=== PATIENT | male | born 1995 | race Caucasian/White ===

== ENCOUNTER → 2017-05-20 | Outpatient (CLI) | payer BC ==
--- NOTE | 2017-05-20 12:51 | MR ---
EXAMINATION TYPE: MR knee LT wo con DATE OF EXAM: 05/20/2017 COMPARISON: Plain film 05/13/2017 HISTORY: Left knee pain TECHNIQUE: Multiplanar, multisequence imaging of the knee is performed without IV contrast. FINDINGS: MEDIAL MENISCUS: Anterior and posterior horns are intact without tear. LATERAL MENISCUS: Anterior and posterior horns are intact without tear. CRUCIATE LIGAMENTS: The anterior and posterior cruciate ligaments are intact and unremarkable. COLLATERAL LIGAMENTS: Popliteus tendon shows some increased signal which may represent a strain or te ndinosis. Biceps femoris tendon insertion also shows some increased signal may be due to strain or pa rtial tear, tendinosis. EXTENSOR MECHANISM: Visualized quadriceps and patellar tendons are intact. EFFUSION: Small suprapatellar joint effusion present POPLITEAL CYST: No popliteal/ayala cyst. TRICOMPARTMENT SPACES: Maintained CARTILAGE: Intact BONE MARROW SIGNAL: Abnormal increased signal present at the posterior aspect of the proximal tibia a nd to lesser extent anteriorly. OTHER: Subcutaneous edema changes are present. IMPRESSION: Findings compatible with posttraumatic bone contusion, possible microtrabecular fracture involving th e proximal tibia laterally the lateral aspect. Additional findings above.
== END | disposition home or self-care (01) ==
LOC: RADMRIMAIN 08:54
PROVIDERS: ATTEND Orthopaedic Surgery
DX: M23.304 Other meniscus derangements, unspecified medial meniscus, left knee (principal); M25.562 Pain in left knee; R60.1 Generalized edema

== ENCOUNTER → 2017-07-28 | Outpatient (CLI) | payer BC ==
--- NOTE | 2017-07-28 09:40 | US ---
EXAMINATION TYPE: US abdomen limited DATE OF EXAM: 07/28/2017 COMPARISON: None CLINICAL HISTORY: 21-year-old male R10.84, pain,R74.0 abnormal labs,R11.2 nausea/vomiting TECHNIQUE: Multiple sonographic images of the right upper quadrant are obtained. FINDINGS: FOOT CUTTER NOTES: Limited exam due to patient body habitus. Liver Length: 18.9 cm Gallbladder Wall: 0.2 cm CHD: 0.4 cm Right Kidney: 12.9 x 7.1 x 5.4 cm Pancreas: Suboptimal visualization of the pancreatic tail secondary to shadowing from bowel gas Liver: Enlarged, echogenic, and markedly attenuating. Limited visualization due to patient body habi tus. This secondarily limits assessment for focal lesion. Gallbladder: wnl Evidence for sonographic Guido's sign: neg CHD: wnl Right Kidney: No hydronephrosis IMPRESSION: Hepatomegaly and marked hepatic steatosis. Correlate with LFTs, lipid profile, and patient risk facto rs.
== END | disposition home or self-care (01) ==
LOC: RADUSWWP 07:32
PROVIDERS: ATTEND Family Medicine
DX: K76.0 Fatty (change of) liver, not elsewhere classified (principal); R16.0 Hepatomegaly, not elsewhere classified
CPT/HCPCS: 76705

== ENCOUNTER → 2018-05-11 | Outpatient (CLI) | payer BC ==
--- NOTE | 2018-05-11 15:40 | CT ---
EXAMINATION TYPE: CT abdomen w con DATE OF EXAM: 05/11/2018 COMPARISON: 04/04/2016 HISTORY: 23-year-old male with history of periumbilical hernia repair. Pain to repair region. TECHNIQUE: Contiguous axial scanning of the abdomen and pelvis following administration of 100 ml Iso mary 300 IV contrast. Delayed images through the kidneys and coronal/sagittal reconstructions perform ed. CT DLP: 3482.9 mGycm Automated exposure control for dose reduction was used. FINDINGS: Heart normal size without pericardial effusion. Lung bases clear without pleural effusion. Tiny hiatal hernia. Liver is enlarged measuring 24.1 cm with diffuse low-attenuation. Portal venous system is patent. No biliary ductal dilatation. Gallbladder, adrenal glands, right kidney, and pancreas appear within normal limits. Nonobstructive 5 mm calculus mid to lower pole left kidney. No hydronephrosis on either side. Symmetr ic uptake and excretion of contrast from both kidneys. Spleen enlarged measuring 16.0 cm on coronal series, coronal image 81. No dilated small bowel, free fluid, or free air. Scattered nonenlarged mesenteric lymph nodes are dem onstrated. Normal appendix partially visualized. Mild overall stool burden. No pericolonic inflammatory change within the abdomen. There is some focal stranding extending deep to the umbilicus suggesting scarring from prior umbilica l hernia repair. No recurrent hernia is seen. No abnormal fluid collection. Bones: No osseous destructive process. IMPRESSION: 1. SOME LINEAR DENSITY, LIKELY SCARRING AT THE UMBILICUS SUGGESTING PRIOR HERNIA REPAIR. NO RECURRENT VENTRAL ABDOMINAL WALL HERNIA. 2. HEPATOMEGALY (24.1 CM) WITH MARKED HEPATIC STEATOSIS. CORRELATE WITH LFT's, LIPID PROFILE, AND PAT IENT RISK FACTORS. 3. SPLENOMEGALY (16.0 CM). 4. NONOBSTRUCTIVE 5 MM LEFT RENAL CALCULUS. TINY HIATAL HERNIA.
== END | disposition home or self-care (01) ==
LOC: RADCTMAIN 13:01
PROVIDERS: ATTEND Family Medicine
DX: N20.0 Calculus of kidney (principal); K76.0 Fatty (change of) liver, not elsewhere classified; R16.2 Hepatomegaly with splenomegaly, not elsewhere classified; K44.9 Diaphragmatic hernia without obstruction or gangrene; E66.01 Morbid (severe) obesity due to excess calories; Z98.890 Other specified postprocedural states; Z87.19 Personal history of other diseases of the digestive system
CPT/HCPCS: 74160; Q9967

== ENCOUNTER → 2022-01-30 | Outpatient (CLI) | payer BC ==
--- NOTE | 2022-01-30 11:11 | P.SLEEP ---
History of Present Illness DATE: 01/30/2022 CONSULTATION/NEW PATIENT EVALUATION HISTORY OF PRESENT ILLNESS/SLEEP-WAKE EVALUATION: 26year old gentleman had been evaluated in the sleep center for possible obstructive sleep apnea hypopnea syndrome. 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 FALLING ASLEEP Patient does have problems with falling asleep, has TV set in bedroom] DURING SLEEP:During the sleep he has extremely loud snoring, witnessed episodes of stopped breathing during the sleep, episodes of awakenings with choking and gasping for air and to multiple nocturia up to 3 times per night] No history of hypnogogical hallucinations, sleep paralysis, or cataplexy. DURING THE DAY/WAKE STATE In the morning patient wake up tired. His difficult to stop with attention, falling asleep during the day, has problems with concentration and irritability.]. [place] sleepiness scale i increased to 11] Patient takes about one nap around noon]. PAST MEDICAL HISTORY Hypertension, ALLERGIC rhinitis, asthma,. Diabetes, history of hypothyroidism, history of GERD] PAST SURGICAL HISTORY Umbilical hernia repair, tubes in the ears in the past] MEDICATIONS Hydrochlorothiazide 12.5 mg once a day, lisinopril 40 mg once a day, fluticasone spray as needed, rubelsus 1 mg once a day] SOCIAL HISTORY Positive ]for smoking for 3 years quit 1-1/2 years ago, alcohol consumption occasional. FAMILY HISTORY:Hypertension, stroke, cancer, diabetes mellitus, acid reflux.] REVIEW OF SYSTEMS Loud snoring, multiple awakenings from sleep, episodes of apnea during the sleep. ]No fevers. No double vision. No recent chest pain. No shortness of breath. No abdominal pain. No bleeding episodes. No blood in urine. No seizure episodes. PHYSICAL EXAMINATION: GENERAL: A pleasant patient without any distress. VITAL SIGNS: B 132/73 , HR 98 , RR 18 , weigh 442.4 pounds, heigh 6]foot three quarters inches, body mass inde 58.7 . HEENT: PERRLA, EOMI. Evaluation of oropharynx showed tongue protrudes midline, low position of soft palate Mallampat 4]. NECK: Supple. No JVD. Thyroid is not palpable 23 inches in circumference. LUNGS: Clear to percussion and to auscultation. Good air exchange. No wheezing or rhonchi. HEART: S1, S2 regular. No murmurs, gallops or rubs. ABDOMEN: Soft and nontender. Bowel sounds are present. No organomegaly appreciated. Obese EXTREMITIES: No clubbing or cyanosis. NUCLEAR RADIATION ENGINEER: Awake, alert, and oriented x3. Cranial nerves 2 to 7 intact. There is no fasciculation or atrophy noted. No focal deficits observed. ASSESSMENT: 1 Loud snoring, witnessed episodes of apneas during sleep. Extremely low position of soft palate Mallampati 4. Extremely wide neck 23 inches in circumference. Obstructive sleep apnea hypopnea syndrome]. 2 Obesity with body mass index 58.7]. hypertension]. 4 ALLERGIC rhinitis]. history of asthma]. 6. Diabetes mellitus]. 7 History of hypothyroidism episode]. 8 Status post umbilical hernia repair]. 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 PLAN: 1. Polysomnography for evaluation of patient's breathing during sleep. 2. CPAP/BiPAP titration if sleep study confirms obstructive sleep apnea- hypopnea syndrome. 3. Preferable position during sleep on the side. 4. No driving if patient feels any sleepiness. Patient is aware of civil and criminal liability for unsafe driving. 5. Sleep hygiene with regular sleep time for at least 7.5-8 hours. 6. Aggressive losing weight program . Sincerely, Dinesh Thompson MD, PhD, FAASM. Diplomat of [place] [employer], Sleep Medicine Board by [place] [employer] [place] [employer] Digital Publishing Specialist of [facility] [place] Past Medical History Past Medical History: No Reported History Additional Past Medical History / Comment(s): Ortho History of Any Multi-Drug Resistant Organisms: None Reported Past Surgical History: Hernia Repair Past Psychological History: ADD/ADHD Past Alcohol Use History: Occasional Past Drug Use History: None Reported Medications and Allergies Home Medications Medication Instructions Recorded Confirmed Type Ibuprofen [Motrin] 600 mg PO Q6HR PRN #20 tab 05/13/17 Rx Allergies Allergy/AdvReac Type Severity Reaction Status Date / Time venom-honey bee Allergy Anaphylaxis Verified 04/04/16 00:35 [bee venom (honey bee)] Sleep Note - Sleep Note Sleep Note: Temperature: Pulse Rate: Respiratory Rate: Blood Pressure: SpO2: Height: Weight: BMI: Neck Circumference:
== END ==
LOC: SLEEP 09:47
PROVIDERS: ATTEND Internal Medicine
DX: G47.33 Obstructive sleep apnea (adult) (pediatric) (principal); E66.9 Obesity, unspecified; Z68.43 Body mass index [BMI] 50.0-59.9, adult; I10 Essential (primary) hypertension; E11.9 Type 2 diabetes mellitus without complications; E03.9 Hypothyroidism, unspecified; Z98.890 Other specified postprocedural states; J45.909 Unspecified asthma, uncomplicated; Z87.891 Personal history of nicotine dependence; Z79.899 Other long term (current) drug therapy; F90.9 Attention-deficit hyperactivity disorder, unspecified type; Z91.030 Bee allergy status
CPT/HCPCS: 99202

== ENCOUNTER → 2022-06-13 | Outpatient (CLI) | payer BC ==
--- NOTE | 2022-06-13 17:29 | P.PN ---
Subjective DATE: 06/13/2022 FOLLOW UP VISIT. Patient with obstructive sleep apnea hypopnea syndrome return to sleep center for follow-up visit. Recently patient had sleep study which documented obstructive sleep apnea hypopnea syndrome. Patient was initiated on PAP therapy and today is first visit after treatment was started. I explained to the patient is also of sleep studies in details Patient was able to use PAP equipment most of the nights. The patient does not have significant problems with the mask, PAP pressure and humidification. [place] sleepiness scale is 7 which is normal. I checked information from PAP unit. PAP unit pressure 9-14, average 13.3 cm H2O. Usage is 87% and 63 % for more then 4 hours, average 4.8 hours per night. Leak is high 55.2 l/m. Apnea Hypopnea Index is 0.3, which is normal. MEDICATIONS:1. Hydrochlorothiazide 2. Lisinopril 3. Fluticasone 4. Rubelsus During physical exam: GENERAL: A pleasant patient without any distress. VITAL SIGNS: BP 114/73, HR 90, RR 16, weight 441.0, temperature 98.1, oxygen saturation at room air 97%. HEENT: PERRLA, EOMI.low position of soft palate, Mallapati 4 . NECK: Supple. No JVD. LUNGS: Clear to percussion and to auscultation. Good air exchange. No wheezing or rhonchi. HEART: S1, S2 regular. ABDOMEN: Soft and nontender. Obese EXTREMITIES: No clubbing or cyanosis. BOARDING ROOM FIXER: Awake, alert, and oriented x3. No focal deficit. Impressions: 1. Obstructive sleep apnea-hypopnea syndrome. Patient demonstrated borderline compliance with treatment, benefiting from treatment. 2. Obesity. 3. Diabetes mellitus. 4. History of asthma. 5. History of ALLERGIC rhinitis. 6. History of hypothyroidism episode. 7. Status post umbilical hernia repair. 8. 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 . Plan: 1. Continue using PAP equipment every night for the whole night. 2. To change air filter at least 1-2 times per month. 3. PAP unit should stay lower then position of the head. 4. Advised patient to remove all remaining water from humidifier canister daily and make it dry after each usage. Refill canister with fresh distilled water before each usage. 5. Sleep hygiene with regular time in bed for at least 8 hours. 6. Precautions related to driving. No driving if feel any sleepiness. 7. I will maintain prescription for PAP supplies including mask, tube, filters. 8. Follow up visit in 6 months or earlier if patient has any problems. 9. Watching and aggressive losing weight. Thank you very much for allowing me to participate in the management of your patient. Dinesh Thompson MD, PhD, FAASM. Diplomat of [employer], Sleep Medicine Board by [employer] Medicine Classification Analyst of [facility] [place]
== END ==
LOC: SLEEP 16:43
PROVIDERS: ATTEND Internal Medicine
DX: G47.33 Obstructive sleep apnea (adult) (pediatric) (principal); E66.9 Obesity, unspecified; E11.9 Type 2 diabetes mellitus without complications; Z99.89 Dependence on other enabling machines and devices; Z87.09 Personal history of other diseases of the respiratory system; Z86.39 Personal history of other endocrine, nutritional and metabolic disease; Z98.890 Other specified postprocedural states; Z77.098 Contact with and (suspected) exposure to other hazardous, chiefly nonmedicinal, chemicals; Z91.030 Bee allergy status; F17.210 Nicotine dependence, cigarettes, uncomplicated
CPT/HCPCS: 99212

== ENCOUNTER → 2023-03-06 | Outpatient (CLI) | payer BC ==
--- NOTE | 2023-03-06 17:29 | P.PN ---
Subjective DATE: 03/06/2023 FOLLOW UP VISIT. Patient with obstructive sleep apnea hypopnea syndrome return to sleep center for follow-up visit. Information from previous visit have been reviewed. Patient is using PAP equipment every night for the whole night, getting PAP supplies in time. The patient does not have significant problems with the mask, PAP unit and humidification. [place] sleepiness scale is 7, which is normal. I checked information from PAP unit. PAP unit pressure 9-14, average 11.8 cm H2O. Usage is more than 80 % for more then 4 hours, average 5.5 hours per night. Leak is high 76 l/m. Apnea Hypopnea Index is 0.9, which is normal. MEDICATIONS:1. Phentermine 37.5 mg once a day 2. Hydrochlorothiazide 12.5 mg once a day 3. Lisinopril 40 mg once a day 4. Rybelsus During physical exam: GENERAL: A pleasant patient without any distress. VITAL SIGNS: BP 136/85, HR 87, RR 16, weight 398.6, temperature 97.4, oxygen saturation at room air 96 % . HEENT: PERRLA, EOMI.low position of soft palate, Mallapati 4 . NECK: Supple. No JVD. LUNGS: Clear to percussion and to auscultation. Good air exchange. No wheezing or rhonchi. HEART: S1, S2 regular. ABDOMEN: Soft and nontender. Obese EXTREMITIES: No clubbing or cyanosis. ENGRAVER TENDER: Awake, alert, and oriented x3. No focal deficit. Impressions: 1. Obstructive sleep apnea-hypopnea syndrome. Patient demonstrated good compliance with treatment, benefiting from treatment. 2. Obesity, patient lost 42 pounds since previous visit. 3. Diabetes mellitus. 4. History of ALLERGIC rhinitis. 5. History of asthma. 6. History of episodes of hypothyroidism. 7. 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 Plan: 1. Continue using PAP equipment every night for the whole night. 2. To change air filter at least 1-2 times per month. 3. PAP unit should stay lower then position of the head. 4. Advised patient to remove all remaining water from humidifier canister daily and make it dry after each usage. Refill canister with fresh distilled water before each usage. 5. Sleep hygiene with regular time in bed for at least 8 hours. 6. Precautions related to driving. No driving if feel any sleepiness. 7. I will maintain prescription for PAP supplies including mask, tube, filters. 8. Watching and continue losing weight. 9. Follow up visit in 6 months or earlier if patient has any problems. Thank you very much for allowing me to participate in the management of your patient. Dinesh Thompson MD, PhD, FAASM. Diplomat of [employer] [employer], Sleep Medicine Board by [employer] [employer] Director Mortgage of [facility] [place]
== END ==
LOC: 3 N SLEEP 15:58
PROVIDERS: ATTEND Internal Medicine
DX: G47.33 Obstructive sleep apnea (adult) (pediatric) (principal); E66.9 Obesity, unspecified; E11.9 Type 2 diabetes mellitus without complications; J45.909 Unspecified asthma, uncomplicated; E03.9 Hypothyroidism, unspecified; F17.200 Nicotine dependence, unspecified, uncomplicated; Z99.89 Dependence on other enabling machines and devices; Z91.030 Bee allergy status
CPT/HCPCS: 99212

== ENCOUNTER → 2023-10-08 | Outpatient (CLI) | payer BC ==
[2023-10-08 17:01] VITALS: BP 141/91; PULSE 104; RESP 20; TEMP 98.2
--- NOTE | 2023-10-08 17:47 | P.PN ---
Subjective DATE: 10/08/2023 FOLLOW UP VISIT. Patient with obstructive sleep apnea hypopnea syndrome return to sleep center for follow-up visit. Information from previous visit have been reviewed. Patient is using PAP equipment but not for the whole night. 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 The patient does not have significant problems with the mask, PAP unit and humidification. [place] sleepiness scale is 6. I checked information from PAP unit. PAP unit pressure 9-14, average 11.4 cm H2O. Usage is 70% and 30% for more then 4 hours, average 4 hours per night. Leak is extremely high 91.4 l/m. Apnea Hypopnea Index is 2.4, which is normal. MEDICATIONS:1. Losartan 50 mg once a day 2. Hydrochlorothiazide 12.5 mg once a day During physical exam: GENERAL: A pleasant patient without any distress. VITAL SIGNS: Please see below. HEENT: PERRLA, EOMI.low position of soft palate, Mallapati 4 . NECK: Supple. No JVD. LUNGS: Clear to percussion and to auscultation. Good air exchange. No wheezing or rhonchi. HEART: S1, S2 regular. ABDOMEN: Soft and nontender. Obese EXTREMITIES: No clubbing or cyanosis. BOOK SALESMAN: Awake, alert, and oriented x3. No focal deficit. Impressions: 1. Obstructive sleep apnea-hypopnea syndrome. Patient demonstrated borderline compliance with treatment, benefiting from treatment. 2. Obesity, BMI 62.4, patient significantly increased weight 157 pounds comparing with previous visit. 3. Diabetes mellitus. 4. History of asthma. 5. History of episodes of hypothyroidism. 6. History of allergic rhinitis. 7. 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 Plan: 1. Continue using PAP equipment every night for the whole night. 2. To change air filter at least 1-2 times per month. 3. PAP unit should stay lower then position of the head. 4. Advised patient to remove all remaining water from humidifier canister daily and make it dry after each usage. Refill canister with fresh distilled water before each usage. 5. Sleep hygiene with regular time in bed for at least 8 hours. 6. Precautions related to driving. No driving if feel any sleepiness. 7. I will maintain prescription for PAP supplies including mask, tube, filters. 8. Follow up visit in 6 months or earlier if patient has any problems. 9. Watching and aggressive losing weight. Thank you very much for allowing me to participate in the management of your patient. Dinesh Thompson MD, PhD, FAASM. Diplomat of [place] [employer], Sleep Medicine Board by [place] [employer] Web Page Designer of [facility] [employer] Objective - Vital Signs Vital signs: Vital Signs Temp 98.2 F 10/08/23 16:47 Pulse 104 H 10/08/23 16:47 Resp 20 10/08/23 16:47 BP 141/91 10/08/23 16:47 Pulse Ox 94 L 10/08/23 16:47 FiO2
== END ==
LOC: 3 N SLEEP 16:22
PROVIDERS: ATTEND Internal Medicine
DX: G47.33 Obstructive sleep apnea (adult) (pediatric) (principal); E66.9 Obesity, unspecified; E11.9 Type 2 diabetes mellitus without complications; J45.909 Unspecified asthma, uncomplicated; E03.9 Hypothyroidism, unspecified; F17.200 Nicotine dependence, unspecified, uncomplicated; Z68.44 Body mass index [BMI] 60.0-69.9, adult; Z91.030 Bee allergy status; Z87.09 Personal history of other diseases of the respiratory system
CPT/HCPCS: 99212

== ENCOUNTER → 2023-12-22 | Outpatient (CLI) | payer BC ==
--- NOTE | 2023-12-22 10:52 | US ---
EXAMINATION TYPE: US abdomen limited DATE OF EXAM: 12/22/2023 COMPARISON: EXAMINATION TYPE: US abdomen limited DATE OF EXAM: 12/22/2023 COMPARISON: 2017 CLINICAL INDICATION: Male, 28 years old with history of R74.8 ELEVATED LIVER ENZYMES; TECHNIQUE: Multiple sonographic images of the right upper quadrant are obtained. FINDINGS: EXAM MEASUREMENTS: Liver Length: 23 cm Gallbladder Wall: 0.20 cm CBD: Unable to visualize due to large patient body habitus Right Kidney: 14.1 x 7.5 x 6.1 cm BILLING ASSOCIATE NOTES:Large patient body habitus Pancreas: limited visualization Liver: Increased attenuation, decreased visualization of vessels suggestive of fatty infiltrate Gallbladder: Appears wnl Evidence for sonographic Guido's sign: No CBD: Unable to visualize Right Kidney: Appears wnl as visualized Limited visualization of the pancreas due to patient body habitus. Diffuse increased attenuation of t he liver. This appearance limits evaluation for intrahepatic masses. No gross evidence of mass. No bi liary duct dilatation identified. Noncirrhotic morphology. Enlarged liver. Gallbladder is within norm al limits without lithiasis identified. Negative sonographic Guido sign. Common bile duct is not vis ualized due to patient body habitus. The visualized right kidney appears unremarkable without gross e vidence of mass, nephrolithiasis, or stones. IMPRESSION: 1. Limited examination due to patient's body habitus. No ultrasound evidence for an acute process. 2. Hepatomegaly and hepatic steatosis.
== END | disposition home or self-care (01) ==
LOC: RADUSWWP 06:49
PROVIDERS: ATTEND Family Medicine
DX: K76.0 Fatty (change of) liver, not elsewhere classified (principal); R16.0 Hepatomegaly, not elsewhere classified; R74.8 Abnormal levels of other serum enzymes
CPT/HCPCS: 76705

== ENCOUNTER 2024-02-07 15:23 | Emergency (ER) | payer BC ==
--- NOTE | 2024-02-07 15:58 | ED ---
Lower Extremity Injury HPI - General Chief Complaint: Extremity Injury, Lower Stated Complaint: R leg abcess Time Seen by Provider: 02/07/24 15:40 Source: patient, RN notes reviewed Mode of arrival: ambulatory Limitations: no limitations - History of Present Illness Initial Comments: Is a 28-year-old male with a past medical history of hypertension and diabetes who presents emergency department chief complaint of erythema and pain to his right lower extremity. Patient is over the past 2 days he has noticed a increase in erythema that is spreading proximally to the patient's knee, additionally the area is warm to the touch and there is noted area of ulceration/abscess on the leg. Denies any recent trauma or injury to the right lower extremity. Had symptoms of chills over the past few days, no reported fevers. Denies symptoms of nausea or vomiting. He denies recent prolonged travel, shortness of breath, chest pain or pressure, dizziness lightheadedness. Patient denies history of DVT or PE. He states that he took a dose of amoxicillin this morning that he had prescribed from a previous infection. - Related Data Home Medications Medication Instructions Recorded Confirmed Losartan [Cozaar] 50 mg PO DAILY 10/08/23 10/08/23 hydroCHLOROthiazide 12.5 mg PO DAILY 10/08/23 10/08/23 Previous Rx's Medication Instructions Recorded Ibuprofen [Motrin] 600 mg PO Q6HR PRN #20 tab 05/13/17 dexAMETHasone [Decadron] 10 mg PO ONCE #2.5 tab 09/02/22 Allergies Allergy/AdvReac Type Severity Reaction Status Date / Time venom-honey bee Allergy Anaphylaxis Verified 02/07/24 15:28 [bee venom (honey bee)] Review of Systems ROS Statement: Those systems with pertinent positive or pertinent negative responses have been documented in the HPI. ROS Other: All systems not noted in ROS Statement are negative. Past Medical History Past Medical History: Hypertension Additional Past Medical History / Comment(s): Ortho History of Any Multi-Drug Resistant Organisms: None Reported Past Surgical History: Hernia Repair Past Psychological History: ADD/ADHD Smoking Status: Former smoker Past Alcohol Use History: Occasional Past Drug Use History: None Reported General Exam Limitations: no limitations General appearance: alert, in no apparent distress Head exam: Present: atraumatic, normocephalic, normal inspection Eye exam: Present: normal appearance, PERRL, EOMI. Absent: scleral icterus, conjunctival injection, periorbital swelling ENT exam: Present: normal exam, mucous membranes moist Neck exam: Present: normal inspection. Absent: tenderness, meningismus, lymphadenopathy Respiratory exam: Present: normal lung sounds bilaterally. Absent: respiratory distress, wheezes, rales, rhonchi, stridor Cardiovascular Exam: Present: regular rate, normal rhythm, normal heart sounds. Absent: systolic murmur, diastolic murmur, rubs, gallop, clicks GI/Abdominal exam: Present: soft, normal bowel sounds. Absent: distended, tenderness, guarding, rebound, rigid Right Lower Leg exam: Present: tenderness (Calf tenderness on palpation with erythema and warmth to the touch extending proximally to the knee. Pedal pulse 1+. No neurovascular deficits.), swelling, erythema Foot/Toe exam: Present: normal inspection, full ROM. Absent: tenderness, swelling Neurovascular tendon exam: Present: no vascular compromise. Absent: abnormal ca p refill, motor deficit, extremity cold to touch Gait: observed and normal Back exam: Present: normal inspection Neurological exam: Present: alert, oriented X3, CN II-XII intact Psychiatric exam: Present: normal affect, normal mood Skin exam: Present: warm, dry, intact, normal color. Absent: rash Course Vital Signs 02/07/24 02/07/24 15:24 16:56 Temperature 97.8 F Pulse Rate 97 78 Respiratory 18 19 Rate Blood Pressure 188/75 132/81 O2 Sat by Pulse 96 97 Oximetry Medical Decision Making - Medical Decision Making Was pt. sent in by a medical professional or institution (, PA, SERVICES ENGINEER, urgent care, hospital, or group home...) When possible be specific @ -No Did you speak to anyone other than the patient for history (EMS, parent, family, police, friend...)? What history was obtained from this source @ -No Did you review nursing and triage notes (agree or disagree)? Why? @ -I reviewed and agree with nursing and triage notes Were old charts reviewed (outside hosp., previous admission, EMS record, old EKG, old radiological studies, urgent care reports/EKG's, group home records)? Report findings @ -No old charts were reviewed Differential Diagnosis (chest pain, altered mental status, abdominal pain women, abdominal pain men, vaginal bleeding, weakness, fever, dyspnea, syncope, headache, dizziness, GI bleed, back pain, seizure, CVA, palpatations, mental health, musculoskeletal)? @ -Cellulitis, superficial skin infection, deep vein thrombosis, superficial thrombophlebitis, this list is not all inclusive EKG interpreted by me (3pts min.). @ -None X-rays interpreted by me (1pt min.). @ -None done CT interpreted by me (1pt min.). @ -None done U/S interpreted by me (1pt. min.). @ -Duplex ultrasound of the left lower extremity negative for DVT What testing was considered but not performed or refused? (CT, X-rays, U/S, labs)? Why? @ -None What meds were considered but not given or refused? Why? @ -None Did you discuss the management of the patient with other professionals (professionals i.e. , PA, SERVICES ENGINEER, lab, RT, psych nurse, social work coordinator, licensed psychologist manager, teacher, infantry weapons officer, case management assistant)? Give summary @ -No Was smoking cessation discussed for >3mins.? @ -No Was critical care preformed (if so, how long)? @ -No Were there social determinants of health that impacted care today? How? (Homelessness, low income, unemployed, alcoholism, drug addiction, transportation, low edu. Level, literacy, decrease access to med. care, long-term, rehab)? @ -No Was there de-escalation of care discussed even if they declined (Discuss DNR or withdrawal of care, Hospice)? DNR status @ -No What co-morbidities impacted this encounter? (DM, HTN, Smoking, COPD, CAD, Cancer, CVA, ARF, Chemo, Hep., AIDS, mental health diagnosis, sleep apnea, morbid obesity)? @ -None Was patient admitted / discharged? Hospital course, mention meds given and route, prescriptions, significant lab abnormalities, going to OR and other pertinent info. @ -Charge. 28-year-old male with erythema, edema, to the right lower extremity. On examination patient is noted to have multiple small lacerations/abscesses to the lower extremity. There is no active signs of purulence or drainage. The leg is warm to the touch and exhibits 1+ pitting edema. Denies past history of MRSA infection or known MRSA infection. Patient's pedal pulses 1+ and there are no neurovascular deficits on examination. Due to presentation patient will be sent for ultrasound of the lower extremity pending labs. ECG reveals no signs of leukocytosis, no neutrophilia. Lactic acid nonelevated. CMP reveals a mild hypokalemia patient is provided with a dose of oral potassium supplementation. CRP mildly elevated at 3.7 which consistent with infection of the right lower extremity. Patient will be provided with a dose of Rocephin in the emergency department and sent a prescription for Keflex to take for cellulitis. Recommend that patient continue full course of antibiotics. All questions answered at bedside and strict return parameters susan with the patient he is verbalized understanding. He is provided with a paper prescription for the antibiotic. Recommend that he follow-up with his primary care provider late next week for reevaluation. Discussed with Dr. Renee Undiagnosed new problem with uncertain prognosis? @ -No Drug Therapy requiring intensive monitoring for toxicity (Heparin, Nitro, Insulin, Cardizem)? @ -No Were any procedures done? @ -No Diagnosis/symptom? @ -cellulitis Acute, or Chronic, or Acute on Chronic? @ -Acute Uncomplicated (without systemic symptoms) or Complicated (systemic symptoms)? @ -uncomplicated Side effects of treatment? @ -No Exacerbation, Progression, or Severe Exacerbation? @ -No Poses a threat to life or bodily function? How? (Chest pain, USA, SC, pneumonia, PE, COPD, DKA, ARF, appy, cholecystitis, CVA, Diverticulitis, Homicidal, Suicidal, threat to staff... and all critical care pts) @ -No - Lab Data Result diagrams: 02/07/24 16:21 02/07/24 16:21 Lab Results 02/07/24 02/07/24 02/07/24 Range/Units 16:21 16:21 16:21 WBC 9.9 (3.8-10.6) k/uL RBC 4.75 (4.30-5.90) m/uL Hgb 13.0 (13.0-17.5) gm/dL Hct 39.7 (39.0-53.0) % MCV 83.6 (80.0-100.0) fL MCH 27.3 (25.0-35.0) pg MCHC 32.7 (31.0-37.0) g/dL RDW 15.4 (11.5-15.5) % Plt Count 171 (150-450) k/uL MPV 8.3 Neutrophils % 77 % Lymphocytes % 15 % Monocytes % 4 % Eosinophils % 0 % Basophils % 0 % Neutrophils # 7.7 (1.3-7.7) k/uL Lymphocytes # 1.5 (1.0-4.8) k/uL Monocytes # 0.4 (0-1.0) k/uL Eosinophils # 0.0 (0-0.7) k/uL Basophils # 0.0 (0-0.2) k/uL Sodium 137 (137-145) mmol/L Potassium 3.3 L (3.5-5.1) mmol/L Chloride 101 (98-107) mmol/L Carbon Dioxide 29 (22-30) mmol/L Anion Gap 7 mmol/L BUN 13 (9-20) mg/dL Creatinine 0.74 (0.66-1.25) mg/dL Est GFR (CKD-EPI)AfAm >90 (>60 ml/min/1.73 sqM) Est GFR (CKD-EPI)NonAf >90 (>60 ml/min/1.73 sqM) Glucose 153 H (74-99) mg/dL Plasma Lactic Acid Topher 1.2 (0.7-2.0) mmol/L Calcium 8.8 (8.4-10.2) mg/dL Total Bilirubin 0.9 (0.2-1.3) mg/dL AST 43 (17-59) U/L ALT 56 H (4-49) U/L Alkaline Phosphatase 68 (38-126) U/L C-Reactive Protein 23.7 H (<1.0) mg/dL Total Protein 6.7 (6.3-8.2) g/dL Albumin 3.7 (3.5-5.0) g/dL Disposition Clinical Impression: Cellulitis, Right leg pain Disposition: HOME SELF-CARE Condition: Good Instructions (If sedation given, give patient instructions): Cellulitis (ED) Additional Instructions: Return to the emergency department for any new or worsening symptoms. Complete full course of antibiotics as prescribed. Recommend he follow-up with your primary care provider next week for further evaluation. Is patient prescribed a controlled substance at d/c from ED?: No Referrals: Valentin Thomas MD [Primary Care Provider] - 1-2 days Time of Disposition: 17:34
[2024-02-07 16:46] LABS: Basophils % (A) 0 %; Eosinophils % (A) 0 %; HCT 39.7 % (39.0-53.0); Lymphocytes # (A) 1.5 k/uL (1.0-4.8); Lymphocytes % (A) 15 %; MCH 27.3 pg (25.0-35.0); MCHC 32.7 g/dL (31.0-37.0); MCV 83.6 fL (80.0-100.0); Mean Platelet Volume 8.3; Monocytes # (A) 0.4 k/uL (0-1.0); Monocytes % (A) 4 %; Neutrophils # (A) 7.7 k/uL (1.3-7.7); Neutrophils % (A) 77 %; Platelet Count 171 k/uL (150-450); RBC 4.75 m/uL (4.30-5.90); RDW 15.4 % (11.5-15.5); WBC 9.9 k/uL (3.8-10.6)
--- NOTE | 2024-02-07 16:54 | US ---
EXAMINATION TYPE: US venous doppler duplex LE RT DATE OF EXAM: 02/07/2024 4:42 PM COMPARISON: NONE CLINICAL INDICATION: Male, 28 years old with history of pain, erythema, edema; Scratched anterior jass f - redness and swelling since; Hx HTN and DM SIDE PERFORMED: Right TECHNIQUE: The lower extremity deep venous system is examined utilizing real time linear array sonog jimbo with graded compression, doppler sonography and color-flow sonography. VESSELS IMAGED: Common Femoral Vein Deep Femoral Vein Greater Saphenous Vein * Femoral Vein Popliteal Vein Small Saphenous Vein * Proximal Calf Veins (* superficial vessels) Right Leg: Negative for DVT Left Leg: NA Reactive lymph node seen in groin IMPRESSION: Grayscale, color doppler, spectral doppler imaging performed of the deep veins of the lo wer extremities. There is normal flow, compressibility, vascular waveforms.
[2024-02-07 16:58] LABS: ALT 56 U/L (4-49); AST 43 U/L (17-59); African American GFR (CKD) >90 (>60 ml/min/1.73 sqM); Albumin 3.7 g/dL (3.5-5.0); Alkaline Phosphatase 68 U/L (38-126); Anion Gap 7 mmol/L; Blood Urea Nitrogen 13 mg/dL (9-20); Calcium 8.8 mg/dL (8.4-10.2); Carbon Dioxide 29 mmol/L (22-30); Chloride 101 mmol/L (98-107); Glucose 153 mg/dL (74-99); Non-African American GFR(CKD) >90 (>60 ml/min/1.73 sqM); Potassium 3.3 mmol/L (3.5-5.1); Sodium 137 mmol/L (137-145); Total Bilirubin 0.9 mg/dL (0.2-1.3); Total Protein 6.7 g/dL (6.3-8.2)
[2024-02-07 17:11] LABS: C Reactive Protein 23.7 mg/dL (<1.0)
[2024-02-07] MEDS: cefTRIAXone IN SWFI 1,000 MG/10 ML SYRINGE IVP STA (17:54)
[2024-02-07] MEDS: POTASSIUM BICARBONATE/CIT AC 20 MEQ TABLET.EFF PO ONE (17:54)
[2024-02-07 18:08] VITALS: BP 134/82; PULSE 76; RESP 20; TEMP 97.9
== END 2024-02-07 18:07 | disposition home or self-care (01) ==
LOC: EC 15:23
DX: L03.115 Cellulitis of right lower limb (principal); M79.661 Pain in right lower leg; I10 Essential (primary) hypertension; E11.9 Type 2 diabetes mellitus without complications; Z79.899 Other long term (current) drug therapy; Z87.891 Personal history of nicotine dependence; Z91.030 Bee allergy status
CPT/HCPCS: 36415; 80053; 83605; 85025; 86140; 93971; 99284; 96374; J0696

== ENCOUNTER → 2024-05-05 | Outpatient (CLI) | payer BC ==
[2024-05-05 17:08] VITALS: BP 151/83; PULSE 110; RESP 18; TEMP 98.4
--- NOTE | 2024-05-05 17:49 | P.PROGSL ---
Subjective DATE: 05/05/2024 FOLLOW UP VISIT. Patient with obstructive sleep apnea hypopnea syndrome return to sleep center for follow-up visit. Information from previous visit have been reviewed. Patient is using PAP equipment every night for the whole night, getting PAP supplies in time. The patient does not have significant problems with the mask, PAP unit and humidification. Patient had several episodes when he feels that the pressure is too high for him in the middle of the night. [place] sleepiness scale is 9, which is borderline. I checked information from PAP unit. PAP unit pressure 9-14, average 11.7 cm H2O. ramp started from pressure 6 cm of water and patient feels comfortable in the beginning of the night. Usage is 83% and 70% for more then 4 hours, average 5.25 hours per night. Leak is significantly increased to 90.0 l/m. Apnea Hypopnea Index is 0.4, which is normal. MEDICATIONS have been reviewed, please see below. During physical exam: GENERAL: A pleasant patient without any distress. VITAL SIGNS: Please see below, weight is 458 lbs. HEENT: PERRLA, EOMI.low position of soft palate, Mall[place]ati 4 . NECK: Supple. No JVD. LUNGS: Clear to percussion and to auscultation. Good air exchange. No wheezing or rhonchi. HEART: S1, S2 regular. ABDOMEN: Soft and nontender. Obese EXTREMITIES: No clubbing or cyanosis. 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 No focal deficit. Impressions: 1. Obstructive sleep apnea-hypopnea syndrome. Patient demonstrated great compliance with treatment, benefiting from treatment. 2. Obesity, BMI 62.1. 3. History of asthma. 4. Diabetes mellitus. 5. History of allergic rhinitis. 6. History of hypothyroidism. 7. 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 I slightly decreased range of the pressure in AutoPAP unit to the range 9 to 12 cm of water. Plan: 1. Continue using PAP equipment every night for the whole night. 2. Sleep hygiene with regular time in bed for at least 7.5-8 hours 3. PAP unit should stay lower then position of the head. 4. Advised patient to remove all remaining water from humidifier canister daily and make it dry after each usage. Refill canister with fresh distilled water before each usage. 5. Watching weight. 6. Precautions related to driving. No driving if feel any sleepiness. 7. I will maintain prescription for PAP supplies including mask, tube, filters. 8. Follow up visit in 8 months or earlier if patient has any problems. Thank you very much for allowing me to participate in the management of your patient. Dinesh Thompson MD, PhD, FAASM. Diplomat of [place] [employer], Sleep Medicine Board by [place] [employer] [facility] [place] Objective - Vital Signs Vital Signs: Vital Signs Temp 98.4 F 05/05/24 17:07 Pulse 110 H 05/05/24 17:07 Resp 18 05/05/24 17:07 BP 151/83 05/05/24 17:07 Pulse Ox 97 05/05/24 17:07 FiO2 Intake & Output 05/04/24 05/05/24 05/05/24 18:59 06:59 18:59 Weight 207.745 kg Home Medications: Home Medications Medication Instructions Recorded Confirmed Type Ibuprofen [Motrin] 600 mg PO Q6HR PRN #20 tab 05/13/17 05/05/24 Rx dexAMETHasone [Decadron] 10 mg PO ONCE #2.5 tab 09/02/22 Rx Losartan [Cozaar] 50 mg PO DAILY 10/08/23 05/05/24 History hydroCHLOROthiazide 12.5 mg PO DAILY 10/08/23 05/05/24 History Loratadine [Claritin] 10 mg PO DAILY 05/05/24 05/05/24 History Phentermine HCl 37.5 mg PO DAILY 05/05/24 05/05/24 History
== END ==
LOC: 3 N SLEEP 16:57
PROVIDERS: ATTEND Internal Medicine
CPT/HCPCS: 99212